=== PATIENT | female | born 1970 | race Caucasian/White ===

== ENCOUNTER 2017-09-11 03:02 | Emergency (ER) | payer OTHER ==
[~2017-09-11] VITALS: Ht 162.6 cm; Wt 73.0 kg
[2017-09-11 03:06] VITALS: TEMP 36.5; Ht 162.6 cm; Wt 73.0 kg
[2017-09-11] MEDS ORDERED: HYDROmorphone INJ 0.5 MG/0.5 ML SYR IV STA ×2 (03:22→06:03)
[2017-09-11] MEDS ORDERED: OPTIRAY 320 IV PRN (03:30)
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
[2017-09-11] MEDS ORDERED: LEVO25TA PO (03:36)
[2017-09-11] MEDS ORDERED: RIVA1TAB4 PO (03:37)
[2017-09-11] MEDS ORDERED: AMT50 PO (03:38)
[2017-09-11 03:39] LABS: HEMATOCRIT 41.3 % (37-47); MEAN CELL VOLUME 92.2 fL (80-100); MEAN CORPUSCULAR HEMOGLOBIN 31.3 pg (25-34); MEAN CORPUSCULAR HGB CONC 33.9 g/dl (32-36); MEAN PLATELET VOLUME 11.5 fL (7.4-10.4); PLATELET COUNT 190 K/uL (130-400); RED BLOOD COUNT 4.48 M/uL (4.2-5.4); WHITE BLOOD COUNT 5.11 K/uL (4.8-10.8)
[2017-09-11] MEDS ORDERED: BUSP15TA70 PO (03:39)
[2017-09-11] MEDS ORDERED: MELO7.5T5 PO (03:39)
[2017-09-11] MEDS ORDERED: CHOL20005 PO (03:41)
[2017-09-11] MEDS ORDERED: BUTA1CAP18 PO (03:44)
[2017-09-11 03:48] LABS: BUN/CREATININE RATIO 14.2 (10-20); CALCIUM 8.8 mg/dl (8.5-10.1); CREATININE 1.02 mg/dl (0.60-1.20); POTASSIUM 3.7 mmol/L (3.5-5.1)
[2017-09-11] MEDS ORDERED: PATIENT'S ALLERGY INFO NEEDS ENTERED STA (03:49)
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
[2017-09-11] MEDS ORDERED: OXYC1TAB3 PO (06:42)
[2017-09-11 06:53] VITALS: BP 112/89; PULSE 116; O2SAT 97
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
[2017-09-11] MEDS ORDERED: VTMD400 (09:57)
== END 2017-09-11 06:56 | disposition home or self-care (01) ==
LOC: EDBD 03:02 → C.EDB 03:04
DX: S32.010A Wedge compression fracture of first lumbar vertebra, initial encounter for closed fracture (principal); R10.9 Unspecified abdominal pain; K50.90 Crohn's disease, unspecified, without complications; D68.2 Hereditary deficiency of other clotting factors; Z79.899 Other long term (current) drug therapy; F17.200 Nicotine dependence, unspecified, uncomplicated; V68.6XXA Passenger in heavy transport vehicle injured in noncollision transport accident in traffic accident, initial encounter

== ENCOUNTER 2017-09-11 09:16 | Emergency (ER) | payer OTHER ==
[~2017-09-11] VITALS: Ht 162.6 cm; Wt 73.0 kg
[~2017-09-11 09:16] MED LIST: AMT50 PO; BUSP15TA70 PO; BUTA1CAP18 PO; CHOL20005 PO; LEVO25TA PO; MELO7.5T5 PO; OXYC1TAB3 PO; RIVA1TAB4 PO
[2017-09-11 09:20] VITALS: TEMP 36.8; Ht 162.6 cm; Wt 73.0 kg
[2017-09-11] MEDS ORDERED: VTMD400 (09:57)
[2017-09-11 10:29] VITALS: BP 121/62; PULSE 92; O2SAT 96
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
== END 2017-09-11 10:20 | disposition home or self-care (01) ==
LOC: C.EDB 09:17
DX: S00.03XA Contusion of scalp, initial encounter (principal); V69.9XXA Occupant (driver) (passenger) of heavy transport vehicle injured in unspecified traffic accident, initial encounter; K50.90 Crohn's disease, unspecified, without complications; D68.2 Hereditary deficiency of other clotting factors; F17.200 Nicotine dependence, unspecified, uncomplicated; Z79.1 Long term (current) use of non-steroidal anti-inflammatories (NSAID); Z79.01 Long term (current) use of anticoagulants